=== PATIENT | female | born 1995 | race Caucasian/White ===

== ENCOUNTER 2017-09-13 18:00 | Observation (INO) | payer OTHER ==
[~2017-09-13] VITALS: Ht 154.9 cm; Wt 74.8 kg
[2017-09-13] MEDS ORDERED: PREN-546 PO (18:57)
[2017-09-13 19:04] VITALS: BP 117/72
== END 2017-09-13 23:00 | disposition home or self-care (01) ==
LOC: MLD 18:00
PROVIDERS: ADMIT Obstetrics & Gynecology; ATTEND Obstetrics & Gynecology
DX: O46.93 Antepartum hemorrhage, unspecified, third trimester (principal); O62.9 Abnormality of forces of labor, unspecified; Z3A.28 28 weeks gestation of pregnancy
CPT/HCPCS: 76805; 81000; G0378; Q0092

== ENCOUNTER 2017-09-20 14:03 | Observation (INO) | payer OTHER ==
[~2017-09-20] VITALS: Ht 154.9 cm; Wt 74.8 kg
[~2017-09-20 14:03] MED LIST: PREN-546 PO
[2017-09-20 15:07] VITALS: BP 96/53
== END 2017-09-20 16:37 | disposition home or self-care (01) ==
LOC: MLD 14:03
PROVIDERS: ADMIT Obstetrics & Gynecology; ATTEND Obstetrics & Gynecology
DX: Z03.79 Encounter for other suspected maternal and fetal conditions ruled out (principal); Z3A.29 29 weeks gestation of pregnancy
CPT/HCPCS: 76805; 76819; 81000; G0378; Q0092